=== PATIENT | female | born 1960 | race Caucasian/White ===

== ENCOUNTER → 2018-01-20 | Outpatient (CLI) | payer OTHER ==
[~2018-01-20] MED LIST: CALC-797 PO; ERG400 PO; ESTR-95 TD; FISH OIL1 CAP PO; LEVO25TA56 PO; MULT1CAP59 PO; PROG100C6 PO; TEST150G2 TD
--- NOTE | 2018-01-22 08:24 | RADIOLOGY IMAGING REPORT ---
FACILITY: [facility] - [place] PATIENT NAME: GERSON PRINCE : [id number] MR: [id number] V: [id number] EXAM DATE: [id number] ORDERING PHYSICIAN: JENNA GOETZ TECHNOLOGIST: [facility] PROCEDURE:BILATERAL DIGITAL SCREENING MAMMOGRAM WITH CAD ASSISTED INTERPRETATION & 3D TOMOSYNTHESIS COMPARISON:Prior mammograms 09/26/16, 10/06/13, 06/23/12, 06/08/12, 06/27/11. INDICATIONS:Screening FINDINGS: Mildly heterogeneous fibroglandular tissue is seen throughout the breasts. The parenchymal pattern has remained stable allowing for difference in mammographic technique & patient positioning. There is no evidence of malignant appearing mass, malignant appearing calcification or other secondary sign of malignancy in either breast. DIAGNOSTIC CATEGORY 1--NEGATIVE. RECOMMENDATIONS: ROUTINE MAMMOGRAM AND CLINICAL EVALUATION. IMPRESSION: BIRADS 1: Negative No significant abnormality is seen. Dictated by: Carmelina Fishman M.D. on 01/20/2018 at 16:47 Transcribed by: LEONCIO on 01/21/2018 at 10:54 Approved by: Carmelina Fishman M.D. on 01/22/2018 at 8:22 [facility]
== END ==
LOC: MAMO 00:29
PROVIDERS: ATTEND Nurse Practitioner Psychiatric/Mental Health
DX: Z12.31 Encounter for screening mammogram for malignant neoplasm of breast (principal); Z80.3 Family history of malignant neoplasm of breast
CPT/HCPCS: 77063; 77067

== ENCOUNTER → 2018-11-19 | Outpatient (CLI) | payer OTHER ==
[~2018-11-19] MED LIST changes: +LIOT50TA6 PO; +SPIR25OR MT
--- NOTE | 2018-11-19 17:03 | RADIOLOGY IMAGING REPORT ---
FACILITY: [facility] - [place] PATIENT NAME: Carolynn Wells : 1960 MR: [id number] V: [id number] EXAM DATE: ORDERING PHYSICIAN: MELA DILL TECHNOLOGIST: Location: [facility] - [place] Patient: Carolynn Wells : 1960 Visit/Account:[id number] Date of Sevice: 11/19/2018 [facility] TRANVAGINAL NON-OB HISTORY: POSTMENOPAUSAL BLEEDING EXAMINATION: Transabdominal and transvaginal pelvic ultrasound with duplex Doppler evaluation. HISTORY: Postmenopausal bleeding COMPARISON: None. FINDINGS: : Uterus: 13.5 x 9.4 x 11.1 cm Myometrium: Multiple uterine fibroids in the anterior and fundal aspect of the uterus fibroids range in size from 5.4 x 4.0 x 4.5 cm, 5 x 3.6 x 5.0 cm, 3.7 x 4.5 x 4.3 cm and 3.5 x 3.5 x 3.7 cm. Endometrium: Heterogenous thickened endometrium difficult to delineate due to retroflexed uterus and multiple subserosal fibroids. The inner aspect of the endometrium was more heterogenously attenuated measuring up to 6 mm in thickness. The outer edge of the endometrium is more indistinctly measureme nts up to 1.6 cm possibly more. Cervix:: There was fluid within the endocervical canal measuring up to 4 mm Ovaries: Right ovary measuring 2.6 x 2.4 x 2.2 cm. Left ovary has been removed Blood flow could not be documented within the right ovary due to body habitus. Adnexa: negative Free pelvic fluid: none IMPRESSION: 1. Fibroid laden uterus as described.. 2. Anteflexed uterus and body habitus makes evaluation of the endometrium suboptimal. There appears to be heterogenous thickening of the endometrium endometrium up to 1.6 cm in some images possibly mo re. With postmenopausal bleeding, I would recommend endometrial biopsy for differential of endometri al hyperplasia versus endometrial Ca. Report Dictated By: Jamari Jules MD at 11/19/2018 2:39 PM Report E-Signed By: Jamari Jules MD at 11/19/2018 4:59 PM WSN:[email or web address]
== END ==
LOC: US 10:39
PROVIDERS: ATTEND Obstetrics & Gynecology
DX: Z02.9 Encounter for administrative examinations, unspecified (principal)

== ENCOUNTER 2018-12-02 03:01 | Day surgery (SDC) | payer OTHER ==
[2018-12-01 18:42] LABS: PLATELET COUNT, AUTOMATED 259 K/uL (150-450)
[~2018-12-02] VITALS: Ht 167.6 cm; Wt 61.2 kg
[~2018-12-02 03:01] MED LIST changes: +LIO5 PO; +MELA1TAB38 PO; +SCOP1PAT2 TD; +[UNRECOGNIZED DRUG - CODE] PO
--- NOTE | 2018-12-02 10:26 | History & Physical ---
History of Present Illness Chief Complaint Postmenopausal bleeding History of Present Illness 58-year-old G0 presents for evaluation of postmenopausal bleeding. She was originally seen on 03/18/18 as a consultation from Tari Vazquez. At that time, she had an EMB which was benign. Since that time, she has been using 400 mg per day of progesterone. She stopped estrogen for approximately 3 months and did not have any bleeding during this time. However, after restarting the estrogen therapy she started having bleeding again. This has been occurring over the past 2 months. She describes it as intermittent spotting that occasionally is heavy. Her most recent ultrasound revealed a more thickened endometrial stripe. She would like to move forward with definitive evaluation with hysteroscopic dilation and curettage. History Obstetrical History: G0 Past Medical History: PMH: Allergic rhinitis, hypothyroid PSH: Right ovarian cystectomy 1993, left salpingectomy 1995, left oophorectomy with right salpingectomy Allergies: Coded Allergies: meperidine (Verified Adverse Reaction, Mild, NAUSEA/VOMITING , 11/30/18) Uncoded Allergies: SULFER (Adverse Reaction, Mild, INDIGESTION, 06/29/12) Social History: No tobacco, alcohol or drug use. 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 Family History: FH: arthritis BROTHER OR SISTER FH: heart disease FATHER maternal grandmother FH: hypertension maternal grandfather FH: prostate cancer FATHER FH: skin cancer FATHER BROTHER OR SISTER FH: stroke maternal grandfather paternal grandmother paternal grandfather FH: thyroid condition BROTHER OR SISTER Med Rec Home Meds Reported Medications Scopolamine (Transderm-Scop) 1 Mg/3 Day Patch.td.3, TD ONCE 11/30/18 Gamma-Aminobutyric Acid (Gamma-Aminobutyric Acid) 25 Gm Powder, 200 MG PO QDAY 11/30/18 Melatonin (Melatonin) 1 Mg Tablet.er, 1.5 MG PO HS 11/30/18 Liothyronine Sodium (LIOTHYRONINE SODIUM) 5 Mcg Tablet, 5 MCG PO QDAY 11/25/18 Spironolactone (Carospir) 25 Mg/5 Ml Oral.susp, 50 MG MT QDAY 03/18/18 Vitamin D (Vitamin D) 400 Intlu Tab, 400 INTLU PO QDAY 06/29/12 Multivitamins (Multivitamin) 1 Each Capsule, 1 EACH PO QPM 06/29/12 Progesterone,Micronized (PROMETRIUM) 100 Mg Capsule, 400 MG PO DAILY 06/29/12 Levothyroxine Sodium (Synthroid) 25 Mcg Tablet, 50 MCG PO QAM 06/29/12 Discontinued Reported Medications [place]-3 Fatty Acids (Fish Oil) 1 Cap Capsule, 1 CAP PO QPM 06/29/12 Calcium Carbonate/Vitamin D3 (CALCIUM 600 + VIT D CAPLET) 1 Each Tablet, 1 EACH PO QPM 06/29/12 Liothyronine Sodium (LIOTHYRONINE SODIUM) 50 Mcg Tablet, 50 MCG PO QDAY 03/18/18 Review of Systems Constitutional: No Fever Neurological: No Syncope Eyes: No Vision Change ENT: No Hearing Loss Cardiovascular: No Chest Pain, No Palpitations Respiratory: No Shortness of Breath, No Cough Gastrointestinal: No Nausea, No Vomiting, No Diarrhea Genitourinary: No Dysuria Musculoskeletal: No Pain Psychiatric: No Depression, No Anxiety Exam General Exam Vital Signs Weight 144 lbs 4 oz / 65.783941 kg Temperature 98.1 F / 36.72 C - Temporal Pulse 77 Blood Pressure 135/79 Sitting, Right Arm Pulse Oximetry 94%, RA General Apperance: Alert/Awake/No Acute Distress Neuro: No Gross deficits Eyes: Normal Extraocular Movement & Vison Cardiovascular: Regular Rate and Rhythm Respiratory: No Respiratory Distress, Clear to Auscultation Abdomen: Soft, Non-Tender, Non-Distended : Normal Musculoskeletal: No Weakness/Pain Extremities: No Cyanosis,Clubbing or Edema Integumentary: Skin Intact without Lesions or Rash Psychological: Alert & Oriented X3, Appropriate Mood & Affect Medical Decision Making Data Points Result Diagram: 12/01/18 1831 12/01/18 1831 Imaging Ultrasound/Imaging PATIENT NAME: Carolynn Wells : 1960 MR: [id number] V: [id number] EXAM DATE: ORDERING PHYSICIAN: MELA DILL TECHNOLOGIST: Location: [facility] Patient: Carolynn Wells : 1960 Visit/Account:[id number] Date of Sevice: 11/19/2018 [facility] [place] TRANVAGINAL NON-OB HISTORY: POSTMENOPAUSAL BLEEDING EXAMINATION: Transabdominal and transvaginal pelvic ultrasound with duplex Doppler evaluation. HISTORY: Postmenopausal bleeding COMPARISON: None. FINDINGS: : Uterus: 13.5 x 9.4 x 11.1 cm Myometrium: Multiple uterine fibroids in the anterior and fundal aspect of the uterus fibroids range in size from 5.4 x 4.0 x 4.5 cm, 5 x 3.6 x 5.0 cm, 3.7 x 4.5 x 4.3 cm and 3.5 x 3.5 x 3.7 cm. Endometrium: Heterogenous thickened endometrium difficult to delineate due to retroflexed uterus and multiple subserosal fibroids. The inner aspect of the endometrium was more heterogenously attenuated measuring up to 6 mm in thickness. The outer edge of the endometrium is more indistinctly measurements up to 1.6 cm possibly more. Cervix:: There was fluid within the endocervical canal measuring up to 4 mm Ovaries: Right ovary measuring 2.6 x 2.4 x 2.2 cm. Left ovary has been removed Blood flow could not be documented within the right ovary due to body habitus. Adnexa: negative Free pelvic fluid: none IMPRESSION: 1. Fibroid laden uterus as described.. 2. Anteflexed uterus and body habitus makes evaluation of the endometrium s uboptimal. There appears to be heterogenous thickening of the endometrium endometrium up to 1.6 cm in some images possibly more. With postmenopausal bleeding, I would recommend endometrial biopsy for differential of endometrial hyperplasia versus endometrial Ca. Report Dictated By: Jamari Jules MD at 11/19/2018 2:39 PM Report E-Signed By: Jamari Jules MD at 11/19/2018 4:59 PM Assessment and Plan Problems: (1) Postmenopausal bleeding Assessment & Plan: 58-year-old G0 presents for evaluation of postmenopausal bleeding. Despite changing progesterone therapy, she has continued to have this bleeding. Ultrasound reveals a more thickened endometrial stripe then 9 months ago. She would like to move forward with definitive evaluation with hysteroscopic dilation and curettage. The risks, benefits and alternatives have been discussed with the patient. She elects to proceed on 12/02/18. (2) Fibroid, uterine (3) Thickened endometrium Copies to: TARI VAZQUEZ ; MELA DILL MD Dec 02, 2018 10:26
[2018-12-02] MEDS ORDERED: ONDANSETRON 4 MG/2 ML VIAL ONE (10:37)
[2018-12-02] MEDS ORDERED: METOCLOPRAMIDE 10 MG/2 ML SDV ONE (10:37)
[2018-12-02] MEDS ORDERED: DEXAMETHASONE SOD 4 MG/ML VIAL ONE (10:37)
[2018-12-02] MEDS ORDERED: PROPOFOL EMUL(*) 10MG/ML 20 ML 20 ML ONE (10:37)
[2018-12-02] MEDS ORDERED: LIDOCAINE MPF 1% 5 ML VIAL ONE (10:37)
[2018-12-02 10:38] VITALS: BP 115/76
[2018-12-02] MEDS ORDERED: fentaNYL CITR 100 MCG/2 ML AMP ONE (10:40)
[2018-12-02] MEDS ORDERED: APREPITANT 40 MG CAP PO ONE (10:45)
[2018-12-02] MEDS ORDERED: FAMOTIDINE 20 MG TAB PO ONE (10:45)
[2018-12-02] MEDS ORDERED: NORMOSOL R SOLN(*) 1000 ML BAG 1,000 ML IV PRN (10:45)
[2018-12-02] MEDS ORDERED: MIDAZOLAM 2 MG/2 ML VIAL IVP PRN (10:45)
[2018-12-02] MEDS ORDERED: LIDOCAINE/SOD BICARB 8.4% SYR ID ONE (10:45)
[2018-12-02] MEDS ORDERED: METHYLERGONOVINE MAL 0.2MG/ML ONE (11:24)
[2018-12-02] MEDS ORDERED: KETOROLAC 30 MG/ML VIAL ONE (11:50)
--- NOTE | 2018-12-02 12:23 | Post Operative Note ---
Operative Note - [facility] Operative Day Date: Dec 02, 2018 Time: 12:21 Physicians Surgeon: Skip Anesthesia: [place] Diagnosis Pre-Op Diagnosis: Postmenopausal bleeding Thickened endometrium Post-Op Diagnosis: Same Procedure Findings: Endometrial lining with some cystic lesions anteriorly and one lesion posteriorly most consistent with a broad based myoma Procedure(s): Diagnostic hysteroscopy Hysteroscopic dilation and curettage Specimen Removed:(Maybe N/A): Endometrial curettings Complications: None Fluids Fluids: IVF: 1000cc Estimated Blood Loss: Minimal MELA DILL MD Dec 02, 2018 12:23
[2018-12-02] MEDS ORDERED: LR(*) 1000 ML BAG 1,000 ML IV ONE (12:26)
[2018-12-02] MEDS ORDERED: IBUP800T37 PO (12:29)
[2018-12-02] MEDS ORDERED: METOCLOPRAMIDE 10 MG/2 ML SDV IVP PRN (12:30)
--- NOTE | 2018-12-02 12:36 | Short(Outpt) Discharge Summary ---
Discharge Summary Reason for Hosp/Final Diag: (1) Postmenopausal bleeding Hospital Course & Plan: 58-year-old G0 presents for evaluation of postmenopausal bleeding. Despite changing progesterone therapy, she has continued to have this bleeding. Ultrasound reveals a more thickened endometrial stripe then 9 months ago. She would like to move forward with definitive evaluation with hysteroscopic dilation and curettage. The risks, benefits and alternatives have been discussed with the patient. She elects to proceed on 12/02/18. (2) Fibroid, uterine (3) Thickened endometrium Departure Discharge to: Home, Self Care Discharge Instructions Home Meds Reported Medications Scopolamine (Transderm-Scop) 1 Mg/3 Day Patch.td.3, TD ONCE 11/30/18 Gamma-Aminobutyric Acid (Gamma-Aminobutyric Acid) 25 Gm Powder, 200 MG PO QDAY 11/30/18 Melatonin (Melatonin) 1 Mg Tablet.er, 1.5 MG PO HS 11/30/18 Liothyronine Sodium (LIOTHYRONINE SODIUM) 5 Mcg Tablet, 5 MCG PO QDAY 11/25/18 Spironolactone (Carospir) 25 Mg/5 Ml Oral.susp, 50 MG MT QDAY 03/18/18 Vitamin D (Vitamin D) 400 Intlu Tab, 400 INTLU PO QDAY 06/29/12 Multivitamins (Multivitamin) 1 Each Capsule, 1 EACH PO QPM 06/29/12 Progesterone,Micronized (PROMETRIUM) 100 Mg Capsule, 400 MG PO DAILY 06/29/12 Levothyroxine Sodium (Synthroid) 25 Mcg Tablet, 50 MCG PO QAM 06/29/12 Discontinued Reported Medications [place]-3 Fatty Acids (Fish Oil) 1 Cap Capsule, 1 CAP PO QPM 06/29/12 Calcium Carbonate/Vitamin D3 (CALCIUM 600 + VIT D CAPLET) 1 Each Tablet, 1 EACH PO QPM 06/29/12 Liothyronine Sodium (LIOTHYRONINE SODIUM) 50 Mcg Tablet, 50 MCG PO QDAY 03/18/18 Follow up Referrals: PAIN MANAGEMENT PHYSICIAN - In Two Weeks @ [facility] [place] with MELA DILL MD Diet: Regular Activity: As Tolerated MELA DILL MD Dec 02, 2018 12:36
--- NOTE | 2018-12-02 13:21 | OPERATIVE REPORT 1 ---
EVENT DATE: December 02, 2018 SURGEON: Kenia Valdivia MD ANESTHESIOLOGIST: Markus Kerr MD ANESTHESIA: General. PREOPERATIVE DIAGNOSES 1. Postmenopausal bleeding. 2. Thickened endometrium. POSTOPERATIVE DIAGNOSES 1. Postmenopausal bleeding. 2. Thickened endometrium. FINDINGS Endometrial lining with multiple cystic lesions anteriorly and one posterior lesion most consistent with a broad-based myoma. PROCEDURES PERFORMED 1. Diagnostic hysteroscopy. 2. Hysteroscopic dilation and curettage. SPECIMENS REMOVED Endometrial curettings. COMPLICATIONS None. IV FLUIDS 1000 cc's. ESTIMATED BLOOD LOSS Minimal. INDICATIONS FOR PROCEDURE This patient is a 58-year old 0 who presents with recurrent postmenopausal bleeding. Although she had an endometrial biopsy in February 2018 which was benign, she continued to have postmenopausal bleeding. An ultrasound revealed a more thickened endometrial stripe than previously and she was, therefore, consented for the above said procedure. Please see history and physical for full details. DESCRIPTION OF PROCEDURE The patient was properly identified and taken to the operating room. She was placed under general anesthesia and placed in dorsal lithotomy position. She was prepped and draped in the usual fashion for a vaginal procedure. A speculum was placed to visualize the cervix, which was nulliparous and without lesion. The anterior lip was grasped with an Allis clamp and placed on gentle traction. An os finder was utilized to navigate the cervical os without difficulty. The cervix was serially dilated with Hegar dilators to 6 mm. The hysteroscope was then assembled and primed. The hysteroscope was introduced under direct visualization into the endometrial cavity. The endometrial cavity did have multiple lesions within it. Anteriorly, there were multiple cystic lesions. Posteriorly, there was one lesion that was extremely broad-based, working from one lateral aspect to the other, which appeared most consistent with a myoma. All of these lesions were then excised using a MyoSure Lite device until the endometrial cavity appeared within normal limits and without any lesions. All of this tissue was sent to pathology. The hysteroscope was then removed and Allis clamp was removed. The speculum was then removed and hemostasis was assured. The patient tolerated the procedure well and recovered in the post- anesthesia care unit. SHIVANI
[2018-12-02 13:25] VITALS: BP 119/63
[2018-12-02 13:30] VITALS: BP 107/61
[2018-12-02 13:45] VITALS: BP 114/63
[2018-12-02 14:03] VITALS: BP 133/71
[2018-12-02 14:05] VITALS: BP 126/68
[2018-12-02] MEDS ORDERED: IBUPROFEN 800 MG TAB PO SCH (17:00)
== END 2018-12-02 13:15 | disposition home or self-care (01) ==
LOC: OR 03:01
PROVIDERS: ATTEND Obstetrics & Gynecology
DX: N95.0 Postmenopausal bleeding (principal); R93.89 Abnormal findings on diagnostic imaging of other specified body structures
CPT/HCPCS: 36415; 58558; 84443; 85025; 88305; J1100; J1885; J2001; J2210; J2405; J2704; J2765; J3010; J8501; 82310; 82374; 82435; 82565; 82947; 84132; 84295; 84520